=== PATIENT | male | born 1995 | race Caucasian/White ===

== ENCOUNTER 2019-02-07 18:57 | Emergency (ER) | payer OTHER ==
--- NOTE | 2019-02-07 19:18 | ED ---
Psychiatric Complaint - HPI Summary HPI Summary: Pt is a 23 y/o M presenting to the ED for a psychiatric complaint. 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 Pt stated he would jump in front of a car if he could not retrieve his belongings. Pt denies SI, plan, abdominal pain, or fever. Pt was previously admitted at [facility] for SI. Pt denies any significant PMHx or PSHx. Pt has a FMHx of DM. Pt admits tobacco use. - History Of Current Complaint Chief Complaint: EDMentalHealth Time Seen by Provider: 02/07/19 19:10 Hx Obtained From: Patient Onset/Duration: Sudden Onset Timing: Constant Severity Initially: Moderate Severity Currently: Moderate Aggravating Factor(s): Recent Stress - Broke up with girlfriend Alleviating Factor(s): Nothing Associated Signs And Symptoms: Positive: Negative Has Suicidal: Denies: Thoughts, With A Plan - Allergies/Home Medications Allergies/Adverse Reactions: Allergies Allergy/AdvReac Type Severity Reaction Status Date / Time No Known Allergies Allergy Verified 06/29/15 11:26 PMH/Surg Hx/FS Hx/Imm Hx Previously Healthy: Yes Endocrine/Hematology History: Denies: Hx Diabetes Cardiovascular History: Denies: Hx Hypertension Respiratory History: Reports: Hx Asthma Sensory History: Denies: Hx Legally Blind, Hx Deafness Opthamlomology History: Denies: Hx Legally Blind EENT History: Denies: Hx Deafness Psychiatric History: Reports: Hx Depression, Other Psychiatric Issues/Disorders - Anger management Denies: Hx Eating Disorder, Hx of Violent Episodes Against Others - Surgical History Surgical History: None Surgery Procedure, Year, and Place: None Infectious Disease History: No Infectious Disease History: Denies: Traveled Outside the [place] in Last 30 Days - Family History Known Family History: Positive: Diabetes - Social History Alcohol Use: Rare Hx Substance Use: No Substance Use Type: Reports: None Hx Tobacco Use: Yes Smoking Status (MU): Current Every Day Smoker Review of Systems Negative: Fever Negative: Abdominal Pain Positive: Other - Negative SI or plan at present time. All Other Systems Reviewed And Are Negative: Yes Physical Exam - Summary Physical Exam Summary: Constitutional: Well-developed, Well-nourished, Alert. (-) Distressed Skin: Warm, Dry HENT: Normocephalic; Atraumatic Eyes: Conjunctiva normal Neck: Musculoskeletal ROM normal neck. (-) JVD, (-) Stridor, (-) Nuchal rigidity Cardio: Rhythm regular, rate normal, Heart sounds normal; Intact distal pulses; Radial pulses are 2+ and symmetric. (-) Murmur Pulmonary/Chest wall: Effort normal. (-) Respiratory distress, (-) Wheezes, (-) Rales Abd: Soft, (-) tenderness, (-) Distension, (-) Guarding, (-) Rebound Musculoskeletal: (-) Edema Lymph: (-) Cervical adenopathy Neuro: Alert, Oriented x3 Psych: Mood and affect Normal Triage Information Reviewed: Yes Vital Signs On Initial Exam: Initial Vitals Temp Pulse Resp BP Pulse Ox 97.3 F 86 16 132/110 98 02/07/19 18:59 02/07/19 18:59 02/07/19 18:59 02/07/19 18:59 02/07/19 18:59 Vital Signs Reviewed: Yes Procedures - Sedation Patient Received Moderate/Deep Sedation with Procedure: No Diagnostics - Vital Signs Vital Signs Temp Pulse Resp BP Pulse Ox 02/07/19 18:59 97.3 F 86 16 132/110 98 - Laboratory Result Diagrams: 02/07/19 19:27 02/07/19 19:27 Lab Statement: Any lab studies that have been ordered have been reviewed, and results considered in the medical decision making process. Re-Evaluation - Re-Evaluation 1st re-eval Re-Evaluation Time: 20:00 Comment: At 20:00, pt is medically cleared for a MH evaluation. Course/Dx - Course Course Of Treatment: 23 y/o male p/w SI in setting of relationship stress, NAD here. Hx of prior admission for SI. Will have MHU see. - Differential Dx/Clinical Impression Provider Diagnosis: Depression Discharge ED - Sign-Out/Discharge Documenting (check all that apply): Patient Departure - Discharge Plan Condition: Stable Disposition: HOME Patient Education Materials: Depression (ED), Anxiety (ED), Suicide Prevention (ED) Referrals: [facility] [Other] (Please schedule a follow up appointment as soon as possible. ) No Primary Care Phys,NOPCP [Primary Care Provider] - - Billing Disposition and Condition Condition: STABLE Disposition: Home - Attestation Statements Document Initiated by Anitraibe: Yes Documenting Scribe: Alyson Herrera Provider For Whom Fco is Documenting (Include Credential): Cade Vázquez MD Scribe Attestation: IAlyson, scribed for Cade Vázquez MD on 02/13/19 at 1119. Scribe Documentation Reviewed: Yes Provider Attestation: The documentation as recorded by the Alyson paula accurately reflects the service I personally performed and the decisions made by , Cade Vázquez MD Status of Scribe Document: Viewed Consult Consult: At 02:29, adult education professional reports that pts case was reviewed by Dr. Glover. Pt will be discharged with a diagnosis of depressive disorder.
[2019-02-07 19:36] LABS: Hematocrit 46 % (42-52); Hemoglobin 15.4 g/dL (14.0-18.0); Mean Corpuscular HGB Conc 34 g/dL (31-36); Mean Corpuscular Hemoglobin 30 pg (27-31); Mean Corpuscular Volume 91 fL (80-94); Platelet Count 285 10^3/uL (150-450); Red Blood Count 5.07 10^6 /uL (4.18-5.48); Red Cell Distribution Width 15 % (10-15); White Blood Count 11.2 10^3/uL (3.5-10.8)
[2019-02-07 19:39] LABS: Urine Appearance Clear; Urine Bilirubin Negative (Negative); Urine Blood Negative (Negative); Urine Color Yellow; Urine Glucose Negative (Negative); Urine Ketones Trace (Negative); Urine Nitrite Negative (Negative); Urine Protein Negative (Negative); Urine Specific Gravity 1.005 (1.010-1.030); Urine Urobilinogen Negative (Negative)
[2019-02-07] MEDS ORDERED: Nicotine* 4MG (FRUIT FLAVOR) GUM PO ONE (19:40)
[2019-02-07 19:56] LABS: ALT 14 U/L (7-52); AST 20 U/L (13-39); Albumin/Globulin Ratio 2.2 (1-3); Alkaline Phosphatase 64 U/L (34-104); Anion Gap 8 mmol/L (2-11); BUN/Creatinine Ratio 10.8 (8-20); Blood Urea Nitrogen 12 mg/dL (6-24); CO2 Carbon Dioxide 26 mmol/L (22-32); Calcium 9.5 mg/dL (8.6-10.3); Chloride 105 mmol/L (101-111); EGFR African American 97.7 (>60); EGFR Non-African American 80.7 (>60); Globulin 2.3 g/dL (2-4); Glucose 92 mg/dL (70-100); Potassium 4.1 mmol/L (3.5-5.0); Sodium 139 mmol/L (135-145); Total Protein 7.3 g/dL (6.4-8.9)
[2019-02-07 19:59] LABS: Urine Benzodiazepine Screen None Detected (None Detect); Urine Opiates Screen None Detected (None Detect)
[2019-02-07 20:06] LABS: Acetaminophen < 15 mcg/mL; Alcohol < 10 mg/dL (<10); Salicylate < 2.50 mg/dL (<30)
[2019-02-07 20:21] LABS: TSH (Thyroid Stimulating Horm) 0.69 mcIU/mL (0.34-5.60)
[2019-02-07 20:22] LABS: ABS Basophils 0.1 10^3/ul (0-0.2); ABS Eosinophils 0.2 10^3/ul (0-0.6); ABS Lymphocytes 1.5 10^3/ul (1.0-4.8); ABS Neutrophils 8.5 10^3/ul (1.5-7.7); Eosinophil % 1.5 %; Lymphocyte % 13.2 %
[2019-02-08 03:00] VITALS: BP 109/78
== END 2019-02-08 03:19 | disposition home or self-care (01) ==
LOC: ED 18:57
DX: F32.9 Major depressive disorder, single episode, unspecified (principal); F17.210 Nicotine dependence, cigarettes, uncomplicated
CPT/HCPCS: 36415; 80053; 80307; 80320; 80329; 81003; 84443; 85025; 99284; A9270-GY; G0480

== ENCOUNTER 2019-05-08 20:15 | Emergency (ER) | payer OTHER ==
--- NOTE | 2019-05-08 20:28 | ED ---
Dizziness - HPI Summary HPI Summary: This patient is a 23 year old male presenting to [facility] with a chief complaint of intermittent dizziness. He states he was sitting at home 2 days ago when he started to experience this as well as nausea/vomiting and difficulty breathing. He states this has never happened to him before. He reports pain to the back of his head. He denies fever. He states he takes ibuprofen on a regular basis but has not taken any today. He states he has had heavy chest pains for 2 months. Moving makes the dizziness works. Medications reviewed, allergies noted. Patient has associated tinnitus and both of his ears. Patient's also felt a fullness in his ears over the past couple of days. Patient has dealt with inner ear issues in the past and been to his doctor For Ear Complaints. - History Of Current Complaint Chief Complaint: EDFluSymptoms Stated Complaint: VOMITING/DIZZINESS PER EMS Time Seen by Provider: 05/08/19 20:21 Hx Obtained From: Patient Character: Dizzy - Allergies/Home Medications Allergies/Adverse Reactions: Allergies Allergy/AdvReac Type Severity Reaction Status Date / Time No Known Allergies Allergy Verified 06/29/15 11:26 Home Medications: Home Medications NK [No Home Medications Reported] 05/08/19 [History Confirmed 05/08/19] PMH/Surg Hx/FS Hx/Imm Hx Endocrine/Hematology History: Denies: Hx Diabetes Cardiovascular History: Denies: Hx Hypertension Respiratory History: Reports: Hx Asthma Sensory History: Denies: Hx Legally Blind, Hx Deafness Opthamlomology History: Denies: Hx Legally Blind Psychiatric History: Reports: Hx Depression, Other Psychiatric Issues/Disorders - Anger management Denies: Hx Eating Disorder, Hx of Violent Episodes Against Others - Surgical History Surgery Procedure, Year, and Place: None Infectious Disease History: No Infectious Disease History: Denies: Traveled Outside the [place] in Last 30 Days - Family History Known Family History: Positive: Diabetes - Social History Alcohol Use: Rare Hx Substance Use: No Substance Use Type: Reports: None Hx Tobacco Use: Yes Smoking Status (MU): Current Every Day Smoker Review of Systems Positive: Chest Pain Positive: Shortness Of Breath Positive: Vomiting, Nausea Neurological: Other - Dizziness Positive: Headache All Other Systems Reviewed And Are Negative: Yes Physical Exam - Summary Physical Exam Summary: Constitutional: Well-developed, Well-nourished, Alert. (-) Distressed Skin: Warm, Dry HENT: Normocephalic; Atraumatic Eyes: Conjunctiva normal Neck: Musculoskeletal ROM normal neck. (-) JVD, (-) Stridor, (-) Tracheal deviation Cardio: Rhythm regular, rate normal, Heart sounds normal; Intact distal pulses. Radial pulses are 2+ and symmetric. (-) Murmur Pulmonary/Chest wall: Effort normal. (-) Respiratory distress, (-) Wheezes, (-) Rales Abd: Soft. (-) Tenderness, (-) Distension, (-) Guarding, (-) Rebound Musculoskeletal: (-) Edema Lymph: (-) Cervical adenopathy Neuro: Alert, Oriented x3, Strength normal, Cranial nerves II-XII are grossly intact. (-) Dysmetria, Nystagmus with rightward gaze, (-) Ataxia by finger to nose testing, (-) Sensory deficit. Walks with a steady gait but he feels off- balance. Psych: Mood and affect Normal Triage Information Reviewed: Yes Vital Signs On Initial Exam: Initial Vitals Temp Pulse Resp BP Pulse Ox 98.6 F 97 18 130/79 99 05/08/19 20:16 05/08/19 20:16 05/08/19 20:16 05/08/19 20:16 05/08/19 20:16 Vital Signs Reviewed: Yes Procedures - Sedation Patient Received Moderate/Deep Sedation with Procedure: No Diagnostics - Vital Signs Vital Signs Temp Pulse Resp BP Pulse Ox 05/08/19 20:16 98.6 F 97 18 130/79 99 - Laboratory Result Diagrams: 05/08/19 20:58 05/08/19 20:58 Lab Statement: Any lab studies that have been ordered have been reviewed, and results considered in the medical decision making process. - EKG 2036 Cardiac Rate: NL - 86 BPM EKG Rhythm: Sinus Rhythm Summary of EKG Findings: No STEMI. ED Physician has reviewed and interpreted this EKG. Re-Evaluation - Re-Evaluation First Eval Re-Evaluation Time: 21:19 Change: Improved Comment: Patient feels better, will wait on labs and then reassess. Dizzy Course/Dx - Course Course Of Treatment: Patient is here with vertigo, vomiting, tinnitus. Patient has had roughly 24 hours of symptoms. Patient has a normal neurologic exam outside of nystagmus with rightward gaze that is fatigable. Patient's symptoms are consistent with a peripheral vertigo. However, patient does complain of some shortness of breath and chest pain that has resolved. Patient was given meclizine and Zofran with vast improvement in his symptoms. Patient had blood performed showed a leukocytosis of 21 likely due to a viral process given his symptoms. Patient also has a slightly elevated troponin 0.03. Patient has no EKG changes. However, due to patient's elevated troponin a second troponin was ordered. Patient was signed out to Dr. Morocho pending second troponin and chest x-ray. - Diagnoses Provider Diagnoses: Vertigo Discharge ED - Sign-Out/Discharge Documenting (check all that apply): Patient Departure - Discharge Signing out patient TO: Lisseth Morocho - Pending ESR, CXR, and Troponin II - Discharge Plan Condition: Stable Disposition: HOME Patient Education Materials: Vertigo (ED) Referrals: Session Pancho KINSEY [Primary Care Provider] - - Billing Disposition and Condition Condition: STABLE Disposition: Home - Attestation Statements Document Initiated by Fco: Yes Documenting Scribe: Francisco Sepulveda Provider For Whom Fco is Documenting (Include Credential): Hitesh Ding MD Scribe Attestation: Francisco Clements scribed for Hitesh Ding MD on 05/08/19 at 2200. Scribe Documentation Reviewed: Yes Provider Attestation: The documentation as recorded by the Francisco paula accurately reflects the service I personally performed and the decisions made by me, Hitesh Ding MD Status of Scribe Document: Viewed
[2019-05-08] MEDS ORDERED: Meclizine TAB* 12.5 MG PO ONE (20:30)
[2019-05-08] MEDS ORDERED: Ondansetron ODT TAB* 4 MG SL ONE (20:31)
[2019-05-08 21:06] LABS: ABS Basophils 0.1 10^3/ul (0-0.2); ABS Lymphocytes 0.9 10^3/ul (1.0-4.8); ABS Monocytes 1.5 10^3/ul (0-0.8); ABS Neutrophils 18.7 10^3/ul (1.5-7.7); Eosinophil % 0.1 %; Hematocrit 46 % (42-52); Hemoglobin 15.5 g/dL (14.0-18.0); Lymphocyte % 4.1 %; Mean Corpuscular HGB Conc 34 g/dL (31-36); Mean Corpuscular Hemoglobin 31 pg (27-31); Mean Corpuscular Volume 90 fL (80-94); Platelet Count 255 10^3/uL (150-450); Red Blood Count 5.08 10^6 /uL (4.18-5.48); Red Cell Distribution Width 14 % (10-15); White Blood Count 21.3 10^3/uL (3.5-10.8)
[2019-05-08 21:26] LABS: Anion Gap 7 mmol/L (2-11); Blood Urea Nitrogen 10 mg/dL (6-24); CO2 Carbon Dioxide 27 mmol/L (22-32); Calcium 8.9 mg/dL (8.6-10.3); Chloride 103 mmol/L (101-111); EGFR African American 110.2 (>60); Glucose 97 mg/dL (70-100); Potassium 3.9 mmol/L (3.5-5.0); Sodium 137 mmol/L (135-145)
--- NOTE | 2019-05-08 22:01 | ED ---
Progress - Progress Note Progress Note: Patient is received as a sign-out from Dr. Ding 2200 05/08/19 pending ESR, CXR and 2nd trop. 2nd trop was negative. CXR showed no infiltrate, no pleural effusion. ESR is still pending at this time, patient will be followed up with regards to this finding if needed. 0008 - Results of workup were discussed. Patient was discharged to home with PCP follow up. Re-Evaluation - Re-Evaluation First Eval Re-Evaluation Time: 00:08 Comment: 0008 - Results of workup were discussed. Patient was discharged to home with PCP follow up. Course/Dx - Diagnoses Provider Diagnoses: Viral syndrome, Dizziness Discharge ED - Sign-Out/Discharge Documenting (check all that apply): Patient Departure - discharge , Receiving Sign-Out Receiving patient FROM: Htiesh Ding - Discharge Plan Condition: Stable Disposition: HOME Patient Education Materials: Viral Syndrome (ED), Dizziness (ED) Referrals: Session Pancho KINSEY [Primary Care Provider] - 3 Days Additional Instructions: PLEASE RETURN TO ED FOR ANY NEW OR WORSENING SYMPTOMS. PLEASE FOLLOW UP WITH YOUR PRIMARY CARE PHYSICIAN WITHIN THREE DAYS. - Billing Disposition and Condition Condition: STABLE Disposition: Home - Attestation Statements Document Initiated by Scribe: Yes Documenting Scribe: GUS JOSEPH Provider For Whom Fco is Documenting (Include Credential): ANNIE HELM MD Scribe Attestation: GUS Clements, scribed for ANNIE HELM MD on 05/09/19 at 0111. Scribe Documentation Reviewed: Yes Provider Attestation: The documentation as recorded by the GUS paula accurately reflects the service I personally performed and the decisions made by me, ANNIE HELM MD Status of Scribe Document: Viewed
[2019-05-09 00:24] LABS: Erythrocyte Sed Rate 0 mm/Hr (0-14)
[2019-05-09 00:54] VITALS: BP 116/64
== END 2019-05-09 00:45 | disposition home or self-care (01) ==
LOC: ED 20:15
DX: R42 Dizziness and giddiness (principal); B34.9 Viral infection, unspecified; J45.909 Unspecified asthma, uncomplicated; F32.9 Major depressive disorder, single episode, unspecified; F17.200 Nicotine dependence, unspecified, uncomplicated
CPT/HCPCS: 36415; 71045; 80048; 84484; 85025; 85652; 93005; 99282; A9270-GY